=== PATIENT | female | born 1995 | race Caucasian/White ===

== ENCOUNTER 2018-04-10 11:31 | Emergency (ER) | payer OTHER ==
[2018-04-10] MEDS: LIDOCAINE 2% (MDV) 20 ML INJ INJ (12:50)
== END 2018-04-10 13:50 | disposition home or self-care (01) ==
LOC: FTE 11:31
DX: S71.112A Laceration without foreign body, left thigh, initial encounter (principal); W50.0XXA Accidental hit or strike by another person, initial encounter; Y92.9 Unspecified place or not applicable
CPT/HCPCS: 12002; 99283-25

== ENCOUNTER 2018-12-27 05:48 | Day surgery (SDC) | payer OTHER ==
[2018-12-27] MEDS ORDERED: MIDAZOLAM 1 MG/ML 2 ML INJ ×2 (07:50)
[2018-12-27] MEDS ORDERED: FENTAnyl 50 MCG/ML VIAL (07:50)
== END 2018-12-27 11:43 | disposition home or self-care (01) ==
LOC: GIL 05:48
DX: K21.9 Gastro-esophageal reflux disease without esophagitis (principal)
CPT/HCPCS: 43239; 84703; 88305